=== PATIENT | male | born 1995 | race Caucasian/White ===

== ENCOUNTER 2020-05-29 10:35 | Emergency (ER) | payer BC ==
[2020-05-29] MEDS ORDERED: Bacitracin Oint 1 GM U/D Packet TOP ONE (11:32)
[2020-05-29] MEDS ORDERED: Lidocaine 1% with EPINEPHrine 1:100,000 50 ML MDV INFILT STA (11:32)
--- NOTE | 2020-05-29 11:32 | EDM.PDOC ---
ED HPI GENERAL MEDICAL PROBLEM - General Chief Complaint: Laceration Stated Complaint: RT RING FINGER INJURY Time Seen by Provider: 05/29/20 11:32 Source of Information: Reports: Patient, RN Notes Reviewed History Limitations: Reports: No Limitations - History of Present Illness INITIAL COMMENTS - FREE TEXT/NARRATIVE: Sammi presents today with complaints of right finger pain, and cut. He was fishing and the fishing line or fish [place] cut his right 4th finger today at 0930. He denies any other issues, concerns or complaints. Tetanus updated 2017 - Related Data Allergies Allergy/AdvReac Type Severity Reaction Status Date / Time No Known Allergies Allergy Verified 05/29/20 11:16 Home Meds: Home Meds NK [No Known Home Meds] 05/29/20 [History] Past Medical History - Past Health History Medical/Surgical History: Denies Medical/Surgical History Social & Family History - Tobacco Use Smoking Status *Q: Never Smoker ED ROS GENERAL - Review of Systems Review Of Systems: See Below Constitutional: Reports: No Symptoms HEENT: Reports: No Symptoms Respiratory: Reports: No Symptoms Cardiovascular: Reports: No Symptoms GI/Abdominal: Reports: No Symptoms Musculoskeletal: Reports: Other (Pain to finger at site of right 4th finger laceration. ) Skin: Reports: Wound (laceration right 4th finger, bleeding controlled. ) Neurological: Reports: No Symptoms Psychiatric: Reports: No Symptoms Hematologic/Lymphatic: Reports: No Symptoms Immunologic: Reports: No Symptoms ED EXAM, SKIN/RASH Exam: See Below Exam Limited By: No Limitations General Appearance: Alert, WD/WN, No Apparent Distress Head: Atraumatic, Normocephalic Respiratory/Chest: No Respiratory Distress, Lungs Clear, Normal Breath Sounds, No Accessory Muscle Use, Chest Non-Tender. No: Respiratory Distress, Crackles, Rales, Rhonchi, Wheezing Cardiovascular: Normal Peripheral Pulses, Regular Rate, Rhythm, No Edema, No Murmur, No Rub Peripheral Pulses: 2+: Radial (L), Radial (R) Extremities: Normal Range of Motion, No Pedal Edema, Normal Capillary Refill, Other (tender to laceration of right 4th finger - lateral aspect) Neurological: Alert, Oriented, CN II-XII Intact, Normal Cognition, Normal Gait, Normal Reflexes, No Motor/Sensory Deficits Psychiatric: Normal Affect, Normal Mood Skin: Warm, Dry, No Rash, Wound/Incision (1.5cm linear laceration lateral right 4th finger, no tendon involvement, sensation intact, ROM intact). No: Erythema Associated features: Tenderness Lymphatic: No Adenopathy ED SKIN PROCEDURES - Laceration/Wound Repair Right Lateral Digit - 4th (Ring) Appearance: Subcutaneous Distal NVT: Neuro & Vascular Intact, No Tendon Injury Anesthetic Type: Local Local Anesthesia - Lidocaine (Xylocaine): 1% with EPI Local Anesthetic Volume: 1cc Skin Prep: Chlorhexidine (Hibiciens), Saline Saline Irrigation (cc's): 10 Exploration/Debridement/Repair: Wound Explored, In a Bloodless Field, Explored to Base, No Foreign Material Found Closed with: Sutures Lac/Wound length In cm: 1.5 Suture Size: 4-0 # of Sutures: 4 Suture Type: Nylon Sterile Dressing Applied: Nurse Tetanus Status Addressed: Yes Complications: No Progress/Comments: Patient tolerated well, bacitracin and dressing applied. Course - Vital Signs Last Recorded V/S: Last Vital Signs Temp 36.3 C 05/29/20 11:21 Pulse 56 L 05/29/20 11:21 Resp 16 05/29/20 11:21 BP 129/56 L 05/29/20 11:21 Pulse Ox 97 05/29/20 11:21 - Orders/Labs/Meds Orders: Active Orders 24 hr Category Date Time Status Fingers Fourth Digit Rt F8 [CR] Stat Exams 05/29/20 11:42 Taken Meds: Medications Discontinued Medications Generic Name Dose Route Start Last Admin Trade Name Freq PRN Reason Stop Dose Admin Bacitracin 1 dose 05/29/20 11:32 05/29/20 12:22 Bacitracin Oint 1 Gm TOP 05/29/20 11:33 1 dose ONETIME ONE Administration Lidocaine/Epinephrine 5 ml 05/29/20 11:32 05/29/20 12:22 Xylocaine 1% With Epinephrine 1:100,000 INFILT 05/29/20 11:33 5 ml NOW STA Administration Departure - Departure Time of Disposition: 12:49 Disposition: Home, Self-Care 01 Condition: Good Clinical Impression: Laceration of finger of right hand - Discharge Information *PRESCRIPTION DRUG MONITORING PROGRAM REVIEWED*: Not Applicable *COPY OF PRESCRIPTION DRUG MONITORING REPORT IN PATIENT ROLLY: Not Applicable Instructions: Laceration Care, Adult, Sutured Wound Care Referrals: PCP,None [Primary Care Provider] - Forms: ED Department Discharge Additional Instructions: You have been evaluated and treated for laceration of the right 4th finger. The 4 sutures can be removed in 7 days. Keep area clean and dry to prevent infection. Ibuprofen and tylenol as needed for pain. Keep current dressing on for 24 hours unless it become wet. If wet, remove, wash with soap and water, dry. Bacitracin topical to laceration twice per day until healed. Start prescription for cephalexin if signs of infection develop. Return to emergency room for any worsening, issues or concerns. Sepsis Event Note (ED) - Evaluation Sepsis Screening Result: No Definite Risk - Focused Exam Vital Signs: Vital Signs Temp Pulse Resp BP Pulse Ox 05/29/20 11:21 36.3 C 56 L 16 129/56 L 97 05/29/20 11:03 36.3 C 56 L 16 129/56 L 97 - My Orders Last 24 Hours: My Active Orders 05/29/20 11:42 Fingers Fourth Digit Rt F8 [CR] Stat - Assessment/Plan Last 24 Hours: My Active Orders 05/29/20 11:42 Fingers Fourth Digit Rt F8 [CR] Stat Assessment:: Laceration of finger of right hand Plan: Patient evaluated and treated for laceration of the right 4th finger. The 4 sutures can be removed in 7 days. Keep area clean and dry to prevent infection. Ibuprofen and tylenol as needed for pain. Keep current dressing on for 24 hours unless it become wet. If wet, remove, wash with soap and water, dry. Bacitracin topical to laceration twice per day until healed. Start prescription for cephalexin if signs of infection develop. Return to emergency room for any worsening, issues or concerns.
--- NOTE | 2020-05-31 09:41 | CR ---
Fingers Fourth Digit Rt F8 CLINICAL HISTORY: Laceration FINDINGS: There is no fracture, dislocation or radiopaque foreign body IMPRESSION: Soft tissue laceration near the PIP joint. No fracture or foreign body
== END 2020-05-29 14:12 | disposition home or self-care (01) ==
LOC: JP.ED 10:35
DX: S61.214A Laceration without foreign body of right ring finger without damage to nail, initial encounter (principal); W26.9XXA Contact with unspecified sharp object(s), initial encounter
CPT/HCPCS: 12001; 73140-26-F8; 73140-F8; 99283-25